=== PATIENT | female | born 2000 | race American Indian/Alaskan Native ===

== ENCOUNTER 2019-04-18 05:07 | Emergency (ER) | payer OTHER ==
[2019-04-18 05:52] LABS: Bacteria,Urine 2+ /HPF (Negative); Bilirubin,Urine NEG (Negative); Blood,Urine SM (Negative); Color,Urine Yellow (Yellow); HCG Qualitative,Urine Negative (Negative); Mucus,Urine FEW /HPF; Protein,Urine <15 mg/dL mg/dL (Negative); Urobilinogen,Urine < 2.0 mg/dL (<2.0)
[2019-04-18] MEDS ORDERED: MACROBID PO ONE (07:04)
--- NOTE | 2019-04-18 07:13 | Emergency Department Report ---
HPI - General Chief Complaint: Urogenital-Female Time Seen by Provider: 04/18/19 07:11 - HPI HPI: 18-year-old -[place] female presents to the emergency department with a complaint of some vaginal discharge, vaginal burning/pain. She says that it h urts when she is ambulating. She denies any burning with urination. She says that the vaginal discharge is thick and white. She denies any past medical history including any previous urinary tract infections or STDs. She has not taken anything for her symptoms prior to arrival. No fever, nausea, vomiting, abdominal or back pain. No recent travel or sick contacts at home. ED Past Medical Hx - Past Medical History Previous Medical History?: No - Surgical History Past Surgical History?: Yes Additional Surgical History: surgical - Social History Smoking Status: Never Smoker Substance Use Type: None - Medications Home Medications: Home Medications Medication Instructions Recorded Confirmed Last Taken Type Fluconazole [Diflucan TAB] 150 mg PO Q3D #2 tablet 04/18/19 Unknown Rx Nitrofurantoin [place]/M-Cryst 100 mg PO Q12HR #14 capsule 04/18/19 Unknown Rx [Macrobid CAP] metroNIDAZOLE [Flagyl] 500 mg PO Q12HR #14 tab 04/18/19 Unknown Rx ED Review of Systems ROS: Stated complaint: VAGINAL INFECTION Other details as noted in HPI Constitutional: denies: chills, fever Eyes: denies: eye pain, vision change ENT: denies: ear pain, throat pain Respiratory: denies: cough, shortness of breath Cardiovascular: denies: chest pain, palpitations Gastrointestinal: abdominal pain. denies: vomiting Genitourinary: discharge. denies: dysuria Musculoskeletal: denies: back pain, myalgia Skin: denies: rash, lesions Neurological: denies: headache, weakness Physical Exam - Physical Exam Vital Signs: Vital Signs 04/18/19 05:11 Temperature 98.0 F Pulse Rate 84 Respiratory 18 Rate Blood Pressure 130/85 O2 Sat by Pulse 100 Oximetry Physical Exam: GENERAL: The patient is well-developed well-nourished. HENT: Normocephalic. Atraumatic. Patient has moist mucous membranes. EYES: Extraocular motions are intact. NECK: Supple. Trachea is midline. CHEST/LUNGS: Clear to auscultation. There is no respiratory distress noted. HEART/CARDIOVASCULAR: Regular. There is no tachycardia. There is no murmur. ABDOMEN: Abdomen is soft, nontender. Patient has normal bowel sounds. There is no abdominal distention. SKIN: Skin is warm and dry. NEURO: The patient is awake, alert, and oriented. The patient is cooperative. The patient has normal speech. MUSCULOSKELETAL: There is no tenderness or deformity. There is no evidence of acute injury. PELVIC: No vaginal or labial lesions seen. There is bilateral labial swelling. There is a moderate amount of thick white discharge seen in the vaginal vault. ED Course Vital Signs 04/18/19 05:11 Temperature 98.0 F Pulse Rate 84 Respiratory 18 Rate Blood Pressure 130/85 O2 Sat by Pulse 100 Oximetry - Reevaluation(s) Reevaluation #1: 04/18/19 13:15 The pelvic examination was done with nurse Black at bedside. ED Medical Decision Making - Medical Decision Making Patient presents to the emergency department with a complaint of some swelling to the external vagina as well as some vaginal discharge. Urinalysis shows a urinary tract infection and the patient will be started on Macrobid. On examination, the patient does appear consistent with having Rosemarie vulvovaginitis. A wet prep was done that was positive for yeast as well as clue cells showing BV. Patient will be placed on Diflucan and Flagyl as well. She was given referrals for primary care and [facility]. She will return to the ER with any worsening of her symptoms or any acute distress. - Differential Diagnosis BV, yeast infection, UTI, Critical Care Time: No Critical care attestation.: If time is entered above; I have spent that time in minutes in the direct care of this critically ill patient, excluding procedure time. ED Disposition Clinical Impression: Candidal vulvovaginitis, BV (bacterial vaginosis) UTI (urinary tract infection) Qualifiers: Urinary tract infection type: acute cystitis Hematuria presence: without hematuria Qualified Code(s): N30.00 - Acute cystitis without hematuria Disposition: TO HOME OR SELFCARE Is pt being admited?: No Condition: Stable Instructions: Bacterial Vaginosis (ED), Urinary Tract Infection in Women (ED), Vulvovaginal Candidiasis (ED) Additional Instructions: Please follow up with a primary care physician and [facility] in the next few days. For your yeast infection, you will take one Diflucan pill today and a second one in 72 hours, on . For the urinary tract infection, take the Macrobi d twice daily for 1 week. For the bacterial vaginosis, take 1 Flagyl twice daily for 1 week. Return to the emergency Department with any worsening of your symptoms or any acute distress. Prescriptions: Fluconazole [Diflucan TAB] 150 mg PO Q3D #2 tablet metroNIDAZOLE [Flagyl] 500 mg PO Q12HR #14 tab Nitrofurantoin [place]/M-Cryst [Macrobid CAP] 100 mg PO Q12HR #14 capsule Referrals: [facility] [Provider Group] - 2-3 Days [facility] [Provider Group] - 2-3 Days [facility] [Outside] - 2-3 Days [facility] [Primary Care Provider] - 2-3 Days Forms: STI Treatment and Prevention Time of Disposition: 07:55
[2019-04-18 08:07] VITALS: BP 131/81
== END 2019-04-18 08:06 | disposition home or self-care (01) ==
LOC: ED 05:07
DX: B37.3 Candidiasis of vulva and vagina (principal); N30.00 Acute cystitis without hematuria; N76.0 Acute vaginitis; B96.89 Other specified bacterial agents as the cause of diseases classified elsewhere
CPT/HCPCS: 81001; 81025; 87210